=== PATIENT | male | born 1935 | race Caucasian/White ===

== ENCOUNTER 2022-09-22 05:46 | Day surgery (SDC) | payer MEDICARE ==
[2022-09-19 12:07] LABS: BASOPHILS % (AUTO) 0.7 % (0.0-5.0); HEMATOCRIT 40.7 % (36-48); LYMPHOCYTES % (AUTO) 23.5 % (21.0-51.0); MEAN CORPUSCULAR HEMOGLOBIN 31.5 pg (27.0-33.0); MEAN CORPUSCULAR HGB CONC 32.2 g/dL (32.0-36.0); MEAN CORPUSCULAR VOLUME 97.8 fL (79-99); MONOCYTES % (AUTO) 10.3 % (3.0-13.0); NEUTROPHILS % (AUTO) 62.1 % (40.0-77.0); PLATELET COUNT (AUTO) 161 K/uL (130-400); RED BLOOD CELL COUNT(AUTO) 4.16 MIL/uL (4.00-5.50); RED CELL DISTRIBUTION WIDTH 14.9 % (11.0-15.5); WHITE BLOOD COUNT (AUTO) 7.3 K/uL (4.8-10.8)
[2022-09-19 12:20] LABS: INR 1.17 (0.85-1.15); PROTHROMBIN TIME 12.6 SEC (9.6-11.6)
[2022-09-19 12:22] LABS: PARTIAL THROMBOPLASTIN TIME 28.6 SEC (26.3-35.5)
[2022-09-19 12:33] LABS: CREATININE 1.4 mg/dL (0.5-1.5); POTASSIUM 3.9 mmol/L (3.5-5.1)
[2022-09-21 10:31] VITALS: BP 147/74
[2022-09-22] VITALS (11 sets, daily range): BP systolic 122–146; BP diastolic 56–75
[~2022-09-22] VITALS: Ht 177.8 cm; Wt 69.5 kg
[~2022-09-22 05:46] MED LIST: APIX5TAB PO; BETA1TAB20 PO; CETI-89 PO; METOPROLOL PO; ROSU20TA31 PO
[2022-09-22] MEDS ORDERED: IOHEXOL 180 MG/ML 20 ML VIAL IVP ONE (05:47)
== END 2022-09-22 12:45 | disposition home or self-care (01) ==
LOC: EDSEX → DAH 05:46 → EDSTATUS 08:00 → DAH 12:45
PROVIDERS: ATTEND Neurological Surgery
DX: M51.16 Intervertebral disc disorders with radiculopathy, lumbar region (principal); Z20.822 Contact with and (suspected) exposure to COVID-19; M48.061 Spinal stenosis, lumbar region without neurogenic claudication; M47.26 Other spondylosis with radiculopathy, lumbar region; Z79.01 Long term (current) use of anticoagulants; Z79.899 Other long term (current) drug therapy
CPT/HCPCS: 87426; 80048; 85025; 85610; 85730; 36415; 62304; 72132; A6260; A4663; Q9965

== ENCOUNTER 2022-10-03 12:00 | Observation (INO) | payer MEDICARE ==
[~2022-10-03] VITALS: Ht 177.8 cm; Wt 114.1 kg
[2022-10-03 11:19] LABS: BASOPHILS % (AUTO) 0.8 % (0.0-5.0); EOSINOPHILS % (AUTO) 3.5 % (0.0-8.0); HEMATOCRIT 40.2 % (36-48); MEAN CORPUSCULAR HGB CONC 32.6 g/dL (32.0-36.0); MEAN CORPUSCULAR VOLUME 95.3 fL (79-99); NEUTROPHILS % (AUTO) 60.3 % (40.0-77.0); PLATELET COUNT (AUTO) 189 K/uL (130-400); RED BLOOD CELL COUNT(AUTO) 4.22 MIL/uL (4.00-5.50); RED CELL DISTRIBUTION WIDTH 15.1 % (11.0-15.5); WHITE BLOOD COUNT (AUTO) 7.4 K/uL (4.8-10.8)
[2022-10-03 11:27] LABS: CREATININE 1.4 mg/dL (0.5-1.5); POTASSIUM 3.9 mmol/L (3.5-5.1)
[~2022-10-03 12:00] MED LIST changes: -BETA1TAB20 PO; -METOPROLOL PO
[2022-10-04 10:08] VITALS: BP 146/67
[2022-10-04] MEDS ORDERED: AEC81 PO (10:23)
[2022-10-04] MEDS ORDERED: CALC-1038 PO (10:23)
[2022-10-04] MEDS ORDERED: CHOL200059 PO (10:23)
[2022-10-04] MEDS ORDERED: FURO20TA4 PO (10:23)
[2022-10-04] MEDS ORDERED: VIT1CAPS47 PO (10:23)
[2022-10-04] MEDS ORDERED: METO-408 PO (10:23)
[2022-10-05] VITALS (24 sets, daily range): BP systolic 96–144; BP diastolic 34–81
[2022-10-05] MEDS ORDERED: MORPHINE PF 100MG/10ML AMP IV ONE ×2 (05:02→08:19)
[2022-10-05] MEDS ORDERED: CEFAZOLIN SODIUM 1 GM VIAL ONE ×3 (05:02→12:07)
[2022-10-05] MEDS ORDERED: THROMBIN-JMI 20000 UNIT KIT TP ONE ×2 (05:03→08:20)
[2022-10-05] MEDS ORDERED: LACTATED RINGERS 1000ML 1,000 ML IV ONE (06:16)
[2022-10-05] MEDS ORDERED: SUCCINYLCHOLINE CHLORIDE 20 MG/ML 10 ML VIAL ONE (06:41)
[2022-10-05] MEDS ORDERED: LIDOCAINE PF 100MG/5ML (2%) SYRINGE 5ML ONE (06:41)
[2022-10-05] MEDS ORDERED: MIDAZOLAM HCL 1 MG/ML 2ML VIAL ONE (06:42)
[2022-10-05] MEDS ORDERED: DEXAMETHASONE SOD PHOSPHATE 10MG/ML 1ML VIAL ONE ×2 (06:42→06:44)
[2022-10-05] MEDS ORDERED: PROPOFOL 10 MG/ML 20ML VIAL IV ONE ×2 (06:42→07:10)
[2022-10-05] MEDS ORDERED: GLYCOPYRROLATE 1 MG/5 ML SYRINGE ONE (06:42)
[2022-10-05] MEDS ORDERED: FENTANYL CITRATE PF 50 MCG/1 ML 2ML VIAL ONE ×3 (06:43→13:23)
[2022-10-05] MEDS ORDERED: ROCURONIUM 10MG/1ML SYR 10 MG/ML ML ONE ×2 (06:43→08:13)
[2022-10-05] MEDS ORDERED: ONDANSETRON 4MG INJ ONE ×2 (06:43→13:03)
[2022-10-05] MEDS ORDERED: NEOSTIGMINE 5MG/5ML SYR IV ONE (06:43)
[2022-10-05] MEDS ORDERED: EPHEDRINE SULFATE 50 MG/ML AMPULE ONE (07:38)
[2022-10-05] MEDS ORDERED: BUPIVACAINE/EPI/PF 0.25% 10ML VIAL IJ SCH (08:00)
[2022-10-05] MEDS ORDERED: CEFAZOLIN SODIUM 3 GM VIAL IV ONE (08:14)
[2022-10-05] MEDS ORDERED: BUPIVACAINE/EPI/PF 0.25% 30ML VIAL IJ ONE (08:23)
[2022-10-05] MEDS ORDERED: ARTIFICIAL TEARS 3.5 GM OINTMENT ONE (08:30)
[2022-10-05] MEDS ORDERED: PHENYLEPHRINE HCL 10 MG/ML 1ML VIAL IV ONE (08:30)
[2022-10-05] MEDS ORDERED: FUROSEMIDE 40MG VIAL ONE (11:47)
[2022-10-05] MEDS ORDERED: PROMETHAZINE HCL 25 MG/ML 1ML AMPULE IM PRN (14:00)
[2022-10-05] MEDS ORDERED: HYDROCODONE/ACETAMINOPHEN 5/325 MG TAB PO PRN (14:00)
[2022-10-05] MEDS ORDERED: MORPHINE 2 MG SYG IVP PRN (14:00)
[2022-10-05] MEDS ORDERED: 0.9%NACL 10ML VIAL IVP PRN (14:00)
[2022-10-05] MEDS: CEFAZOLIN SODIUM 1 GM VIAL IVP SCH ×2 (16:22→20:51)
[2022-10-05] MEDS: DEXAMETHASONE SOD PHOSPHATE 4 MG/ML 1ML VIAL IVP SCH ×2 (16:22→20:00)
[2022-10-05] MEDS: LACTATED RINGERS 1000ML 1,000 ML IV SCH (16:22)
[2022-10-05] MEDS: CETIRIZINE HCL 5 MG TABLET PO SCH (20:52)
[2022-10-05] MEDS ORDERED: Rosuvastatin Calcium 20 MG PO SCH (21:00)
[2022-10-06 00:04] VITALS: BP 100/53
[2022-10-06] MEDS: DEXAMETHASONE SOD PHOSPHATE 4 MG/ML 1ML VIAL IVP SCH ×3 (02:07→14:49)
[2022-10-06] MEDS: LACTATED RINGERS 1000ML 1,000 ML IV SCH ×2 (03:20→16:40)
[2022-10-06 04:11] VITALS: BP 102/43
[2022-10-06] MEDS: CEFAZOLIN SODIUM 1 GM VIAL IVP SCH ×2 (06:23→10:32)
[2022-10-06 08:00] VITALS: BP 102/49
[2022-10-06] MEDS ORDERED: FUROSEMIDE 20 MG TABLET PO SCH (09:00)
[2022-10-06] MEDS ORDERED: ASPIRIN 81 MG EC TAB PO SCH (09:00)
[2022-10-06] MEDS ORDERED: MULTIVITAMIN TABLET PO SCH (09:00)
[2022-10-06] MEDS ORDERED: Cholecalciferol (Vitamin D3) (Vitamin D3) 50 MCG PO SCH (09:00)
[2022-10-06] MEDS ORDERED: METOPROLOL SUCCINATE 25 MG TAB.SR.24H PO SCH (09:00)
[2022-10-06] MEDS ORDERED: CALCIUM CARB 500MG PO SCH (09:00)
[2022-10-06] MEDS: CETIRIZINE HCL 5 MG TABLET PO SCH (09:06)
[2022-10-06 11:47] VITALS: BP 115/55
[2022-10-06] MEDS ORDERED: TAMSULOSIN HCL 0.4 MG CAP.ER.24H PO SCH (15:00)
[2022-10-06 16:00] VITALS: BP 117/58
== END 2022-10-06 18:50 | disposition home or self-care (01) ==
LOC: EDSTATUS 12:00 → EDSEX 12:00 → DAHIP 10-05 05:43 → 3BH 10-05 15:30
PROVIDERS: ADMIT Neurological Surgery; ATTEND Neurological Surgery
DX: M48.061 Spinal stenosis, lumbar region without neurogenic claudication (principal); Z20.822 Contact with and (suspected) exposure to COVID-19; I10 Essential (primary) hypertension; E78.5 Hyperlipidemia, unspecified; E66.9 Obesity, unspecified; I48.20 Chronic atrial fibrillation, unspecified; I35.1 Nonrheumatic aortic (valve) insufficiency; I87.2 Venous insufficiency (chronic) (peripheral); I25.10 Atherosclerotic heart disease of native coronary artery without angina pectoris; Z87.891 Personal history of nicotine dependence; Z95.0 Presence of cardiac pacemaker; Z79.899 Other long term (current) drug therapy
CPT/HCPCS: 80048; 85025; 87426; 36415; 71045; 63047; 63048 ×4; 96374; 96375; 72020; 96376; J1100 ×7; G0378 ×28; G0379; A4510; A4663; J7120 ×4; A4344; A4649 ×3; J0690 ×6; J3010 ×3; J3490 ×4; J2710; J0330; J2001; J2250; J2704 ×2; J2274 ×2; J2405 ×2; J1940; J2370; A4215; A4223; A4222; A4221; A4600